=== PATIENT | male | born 1960 | race Caucasian/White ===

== ENCOUNTER 2016-10-21 10:51 | Emergency (ER) | payer BC ==
[2016-10-21 11:03] VITALS: BP 150/99
--- NOTE | 2016-10-21 11:22 | UC ---
Respiratory Complaint HPI - HPI Summary HPI Summary: 56 yo male with the onset of right sided chest pain and shortness of breath as well as productive cough hx pneumonia has used needs in past no f/c no wt loss - History of Current Complaint Chief Complaint: UCChestPain Stated Complaint: CHEST PAIN,RIGHT RIB PAIN Time Seen by Provider: 10/21/16 11:02 Hx Obtained From: Patient Onset/Duration: Sudden Onset, Gradual Onset, Lasting Weeks Timing: Constant Severity Initially: Mild Severity Currently: Mild Pain Intensity: 4 Pain Scale Used: 0-10 Numeric Character: Cough: Productive Aggravating Factors: Deep Breaths Alleviating Factors: Nothing Associated Signs And Symptoms: Positive: Dyspnea - Allergies/Home Medications Allergies/Adverse Reactions: Allergies Allergy/AdvReac Type Severity Reaction Status Date / Time Penicillins Allergy Unknown Verified 10/21/16 12:22 Reaction Details Home Medications: Home Medications Albuterol HFA INHALER* [Ventolin HFA Inhaler*] 2 puff INH Q6H PRN 10/21/16 [ History Confirmed 10/21/16] Naproxen [Naproxen 500 MG TABS] 500 mg PO BID PRN 10/21/16 [History Confirmed ] PMH/Surg Hx/FS Hx/Imm Hx Previously Healthy: Yes Respiratory History Of: Reports: Bronchitis, Pneumonia - Surgical History Surgical History: Yes Surgery Procedure, Year, and Place: Rshoulder surgery. hemmrhoidectomy - Family History Known Family History: Positive: Unknown - pt states he does not know his family history - Social History Alcohol Use: Daily Alcohol Amount: 4 large cans of beer daily Substance Use Type: Marijuana Substance Use Comment - Amount & Last Used: occasion use Smoking Status (MU): Heavy Every Day Tobacco Smoker Type: Cigarettes Amount Used/How Often: 1 pack daily Cessation Counseling: Patient Advised to Stop Review of Systems Constitutional: Negative Skin: Negative Eyes: Negative ENT: Negative Respiratory: Shortness Of Breath Cardiovascular: Chest Pain Gastrointestinal: Negative Genitourinary: Negative Motor: Negative Neurovascular: Negative Musculoskeletal: Negative Neurological: Negative Psychological: Negative All Other Systems Reviewed And Are Negative: Yes Physical Exam Triage Information Reviewed: Yes Appearance: Well-Appearing, No Pain Distress, Well-Nourished Vital Signs: Initial Vital Signs Temp 99.5 F 10/21/16 10:58 Pulse 97 05/15/17 10:58 Resp 18 10/21/16 10:58 BP 150/99 10/21/16 10:58 Pulse Ox 93 10/21/16 10:58 Vital Signs Reviewed: Yes Eyes: Positive: Conjunctiva Clear ENT: Positive: Hearing grossly normal. Negative: Nasal congestion, Nasal drainage, Trismus, Muffled/hoarse voice Neck: Positive: Supple, Nontender, No Lymphadenopathy Respiratory: Positive: Lungs clear, Normal breath sounds, No respiratory distress, No accessory muscle use Cardiovascular: Positive: RRR, No Murmur Abdomen Description: Positive: Nontender, No Organomegaly, Soft. Negative: CVA Tenderness (R), CVA Tenderness (L) Musculoskeletal: Positive: ROM Intact, No Edema Neurological: Positive: Alert Psychological Exam: Normal Skin Exam: Normal UC Diagnostic Evaluation - Laboratory O2 Sat by Pulse Oximetry: 93 - low/unsure of his baseline - Radiology Xray Interpretation: No Acute Changes - stigmata of COPD Radiology Interpretation Completed By: Radiologist Re-Evaluation - Re-Evaluation First Eval Re-Evaluation Time: 12:21 Change: Improved - no pain/breathing better/lungs clear Respiratory Course/Dx - Differential Dx/Diagnosis Provider Diagnoses: acute bronchitis with bronchospasm. chest wall pain Discharge - Discharge Plan Condition: Stable Disposition: HOME Prescriptions: Azithromycin TAB* [Zithromax TAB*] 250 mg PO DAILY #6 tab Prednisone [Deltasone] 40 mg PO DAILY #10 tab Patient Education Materials: Acute Bronchitis (ED) Referrals: Cynthia Garcia MD [Primary Care Provider] - 4 Days Additional Instructions: use your inhaler 2 puffs 4x day for 5 days decrease or stop smoking see your provider later this week
[2016-10-21] MEDS ORDERED: Ipratropium 0.5MG/2.5ML NEB* 0.5 MG/2.5 ML NEB.SOLN INH ONE (11:33)
[2016-10-21] MEDS ORDERED: Albuterol 2.5 MG/3 ML NEB.SOL* (0.083%) INH ONE (11:33)
--- NOTE | 2016-10-21 11:43 | RAD ---
INDICATION: RIGHT side chest pain and dyspnea 2 months duration. Cough. Tobacco use. COMPARISON: August 22, 2006 TECHNIQUE: Dual energy PA and routine lateral views of the chest were obtained. REPORT: Elevated lung volumes and both diffuse mild prominence of the interstitial markings and patchy rarefaction of the mid to upper lung zone interstitial markings. No focal pulmonary lesion, compelling alveolar consolidation, pleural effusion, pneumothorax. The heart, pulmonary vasculature, and mediastinal contours are unremarkable. Healed fracture of the RIGHT ninth rib noted laterally. No acute rib fracture evident. Mild RIGHT convex curve of the thoracic spine is new compared with the 2007 exam. No suspicious focal osseous lesions evident. IMPRESSION: Stigmata of chronic obstructive pulmonary disease and emphysema. No acute cardiopulmonary process evident.
== END 2016-10-21 12:32 | disposition home or self-care (01) ==
LOC: UCCORT 10:51
DX: J20.9 Acute bronchitis, unspecified (principal); R07.9 Chest pain, unspecified; F17.210 Nicotine dependence, cigarettes, uncomplicated
CPT/HCPCS: 71020; 93005; 99203; G0463; J7644

== ENCOUNTER 2017-05-28 10:59 | Emergency (ER) | payer BC ==
[2017-05-28 11:28] VITALS: BP 155/92
[2017-05-28] MEDS ORDERED: Albuterol/Ipratropium NEB.SOL* Albuterol 2.5 MG/Ipratropium 0.5 MG 3 ML INH ONE (12:22)
--- NOTE | 2017-05-28 12:28 | UC ---
Respiratory Complaint HPI - HPI Summary HPI Summary: Cough and congestion for the past few days. He denies pain or fever. He says he has copd and has inhalers at home but is unable to tell me the names of them. PCP is Jose. He is a smoker. - History of Current Complaint Chief Complaint: UCRespiratory Stated Complaint: SINUS COMPLAINT Time Seen by Provider: 05/28/17 12:12 Hx Obtained From: Patient Onset/Duration: Gradual Onset, Lasting Days Timing: Constant Severity Initially: Moderate Severity Currently: Moderate Character: Cough: Nonproductive Aggravating Factors: Deep Breaths, Recumbent Position Alleviating Factors: Nothing Associated Signs And Symptoms: Positive: URI, Nasal Congestion. Negative: Dyspnea, Fever, Chills, Pleuritic Chest Pain, Wheezing, Hemoptysis, Calf Pain, Calf Swelling - Allergies/Home Medications Allergies/Adverse Reactions: Allergies Allergy/AdvReac Type Severity Reaction Status Date / Time Penicillins Allergy Unknown Verified 05/28/17 11:18 Reaction Details Home Medications: Home Medications Rx Allergy Med, ?Name 1 tab PO DAILY 05/28/17 [History] PMH/Surg Hx/FS Hx/Imm Hx Previously Healthy: No - smoker and copd. Respiratory History: COPD - Surgical History Surgical History: Yes Surgery Procedure, Year, and Place: Rshoulder surgery. hemmrhoidectomy - Family History Known Family History: Positive: Unknown - pt states he does not know his family history - Social History Alcohol Use: Daily Alcohol Amount: 4 large cans of beer daily Substance Use Type: Marijuana Substance Use Comment - Amount & Last Used: occasion use Smoking Status (MU): Heavy Every Day Tobacco Smoker Type: Cigarettes Amount Used/How Often: 1 pack daily Household Exposure Type: Cigarettes Review of Systems ENT: Sinus Congestion Respiratory: Cough All Other Systems Reviewed And Are Negative: Yes Physical Exam Triage Information Reviewed: Yes Appearance: Well-Appearing, No Pain Distress, Well-Nourished Vital Signs: Initial Vital Signs Pulse 98 05/28/17 11:20 Resp 24 05/28/17 11:20 BP 155/92 05/28/17 11:20 Pulse Ox 92 05/28/17 11:20 Vital Signs Reviewed: Yes Eyes: Positive: Conjunctiva Clear ENT: Positive: Normal ENT inspection, Pharyngeal erythema, Nasal congestion, TMs normal, Uvula midline. Negative: Tonsillar swelling, Tonsillar exudate, Trismus, Muffled voice, Sinus tenderness Neck exam: Normal Neck: Positive: Supple, Nontender, No Lymphadenopathy Respiratory Exam: Normal Respiratory: Positive: Normal breath sounds, No respiratory distress, No accessory muscle use, Decreased breath sounds. Negative: Respiratory distress, Crackles, Rhonchi, Stridor, Wheezing, Expiration Cardiovascular: Positive: RRR, No Murmur, Pulses Normal, Brisk Capillary Refill Abdomen Description: Positive: Nontender, No Organomegaly. Negative: Distended , Guarding Musculoskeletal: Positive: Strength Intact, ROM Intact, No Edema Neurological: Positive: Alert, Muscle Tone Normal, Fatigued Skin: Positive: rashes UC Diagnostic Evaluation - Laboratory O2 Sat by Pulse Oximetry: 92 Respiratory Course/Dx - Differential Dx/Diagnosis Provider Diagnoses: cough, congestion. acute copd exacerbation. Discharge - Discharge Plan Condition: Good Disposition: HOME Prescriptions: Azithromyxin KP (NF) [Z-Kp (Zithromax) 250 mg tabs #6] 2 tab PO .TODAY, THEN 1 DAILY #6 tab predniSONE TAB* [Deltasone TAB*] 40 mg PO DAILY #15 tab Patient Education Materials: Acute Bronchitis (ED) Referrals: Cynthia Garcia MD [Primary Care Provider] - 2 Days
--- NOTE | 2017-05-28 12:50 | RAD ---
INDICATION: Cough COMPARISON: 2016 TECHNIQUE: PA and lateral dual-energy views were obtained. FINDINGS: Bones/Soft Tissues: There are no acute bony findings. Cardiomediastinal: The cardiomediastinal silhouette is normal. Lungs: There are no infiltrates. There is hyperinflation. Pleura: There are no pleural effusions. Other: None IMPRESSION: HYPERINFLATION. NO ACTIVE DISEASE.
== END 2017-05-28 13:07 | disposition home or self-care (01) ==
LOC: UCCORT 10:59
DX: J44.1 Chronic obstructive pulmonary disease with (acute) exacerbation (principal); R09.81 Nasal congestion; Z72.0 Tobacco use; F12.90 Cannabis use, unspecified, uncomplicated
CPT/HCPCS: 71020; 99212; A9270-GY; G0463